=== PATIENT | male | born 1975 | race Caucasian/White ===

== ENCOUNTER 2022-10-28 10:43 | Emergency (ER) | payer OTHER, SELFPAY ==
[2022-10-28] VITALS (7 sets, daily range): BP systolic 133–160; BP diastolic 78–112; PULSE 82–143; RESP 15–22; TEMP 36.6; O2SAT 99; BMI 37.1
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
[2022-10-28 11:42] LABS: Absolute Lymphocyte Count 2.75 X10^3/uL (0.83-4.51); Absolute Neutrophil Count 17.4 X10^3/uL (2.0-7.7); Basophil# 0.08 X10^3/uL; Basophil% 0.4 % (0-1); Eosinophil# 0.01 X10^3/uL; Hematocrit 49.1 % (40-54); Hemoglobin 16.3 g/dL (13.0-16.5); Lymphocyte # 2.75 X10^3/ul (0.83-4.51); Lymphocyte % 12.2 % (19-41); Mean Corp Hgb Conc 33.2 g/dL (32-36); Mean Corpuscular Hgb 28.2 pg (27.0-32.0); Mean Corpuscular Volume 84.9 fL (80-94); Mean Platelet Vol. 10.8 fl (6.2-12.0); Monocyte# 2.12 X10^3/uL; Monocyte% 9.4 % (0-10); NRBC Flagged by Analyzer 0 % (0-5); Neutrophil # 17.37 X10^3/uL (2.7-7.7); Neutrophil % 77.3 % (47-70); POSITIVE DIFFERENTIAL YES; Platelet Count 292 K/mm3 (150-450); RBC Distribution Width CV 13.3 % (11.6-14.6); RBC Distribution Width SD 41.3 fl (35.1-43.9); Red Blood Count 5.78 M/mm3 (4.6-6.2); White Blood Count 22.5 K/mm3 (4.4-11.0)
[2022-10-28 11:46] LABS: Differential Indicated SCAN CRITERIA MET
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
[2022-10-28 11:59] LABS: CPK Total, Creatine Kinase 518 U/L (39-308)
[2022-10-28] MEDS: Morphine 4 MG/ML Syringe IV (12:00)
[2022-10-28] MEDS: Ondansetron 4 MG/2 ML Vial IV (12:00)
[2022-10-28] MEDS: Cefazolin 1 GM/50 ML BAG IV (12:00)
[2022-10-28 12:04] LABS: AST(SGOT) 34 U/L (15-37); Alanine Aminotransfer ALT/SGPT 50 U/L (16-61); Albumin, Serum 4.1 g/dL (3.2-5.0); Alkaline Phosphatase 81 U/L (45-117); Anion Gap 14 (5-15); BUN 10 mg/dL (7-18); BUN/Creat Ratio 9.3 RATIO (10-20); Calcium,Total 9.1 mg/dL (8.5-10.1); Chloride 104 mmol/L (98-107); Creatinine, Serum 1.08 mg/dL (0.70-1.30); EST Glomerular Filtration Rate 78 mL/min (>60); Est Glom Filt Rate - Afr Amer 94 mL/min (>60); Estimated Creatinine Clearance 88.25 ml/min; Globulin 3.6 g/dL (2.2-4.2); Glucose 115 mg/dL (74-106); Potassium 3.9 mmol/L (3.5-5.1); Protein, Total 7.7 g/dL (6.4-8.2); Sodium Level 139 mmol/L (136-145); Troponin-I HS 8 pg/mL (3.0-78.0)
[2022-10-28] MEDS: HYDROmorphone 1 MG/ML Syringe IV ×2 (13:50→15:42)
[2022-10-28] MEDS: Acetaminophen 325 MG Tablet 650 MG PO (15:42)
[2022-10-28] MEDS: Metoprolol Tartrate 5 MG/5 ML Vial IV (16:22)
[2022-10-29 12:48] LABS: Pathologist Review Reviewed
== END 2022-10-28 17:20 | disposition short-term general hospital (02) ==
PROVIDERS: Emergency Provider Emergency Medicine; PCP Preventive Medicine Occupational Medicine; Visit Provider Emergency Medicine
DX: S02.832B Fracture of medial orbital wall, left side, initial encounter for open fracture (principal); S02.32XB Fracture of orbital floor, left side, initial encounter for open fracture; M79.641 Pain in right hand; F17.210 Nicotine dependence, cigarettes, uncomplicated; M62.82 Rhabdomyolysis; R00.0 Tachycardia, unspecified; G89.29 Other chronic pain; M54.9 Dorsalgia, unspecified; V20.49XA Other motorcycle driver injured in collision with pedestrian or animal in traffic accident, initial encounter
CPT/HCPCS: 70450; 70486; 71260; 72125; 73130; 74177; 80048; 80076; 82550; 84484; 85025; 93005; 96361; 96374; 96375; 96376; 99283; Q9967; J2405